=== PATIENT | male | born 1975 | race Caucasian/White ===

== ENCOUNTER 2025-02-01 05:01 | Inpatient (IN) ==
[2025-02-01] MEDS: SODIUM CHLORIDE 0.9% 1,000 ML IV ONE (05:35)
[2025-02-01] MEDS: ONDANSETRON INJ 2 MG/ML 2 ML VIAL IV STA (05:36)
[2025-02-01] MEDS: MoRPHine SULFATE 4 MG/ML 1 ML CARP\\VIAL IV PRN (05:36)
[2025-02-01] MEDS: PANTOprazole 40 MG/10 ML SYR IV ONE (05:37)
[2025-02-01 06:15] LABS: Appearance Urine Clear (Clear); Bacteria Urine Automated None Seen (None Seen); Bilirubin Urine 2+ (Negative); Blood Urine Negative (Negative); Cast Urine Automated 0-2 /lpf (0-2); Color Urine Orange; Epithelial Cell Urine Auto 0-2 /hpf (0-2); Glucose Urine UA Negative (Negative); Ketones Urine Trace (Negative); Leukocyte Esterase Urine 1+ (Negative); Mucus Urine Present (None Prsent); Nitrite Urine Positive (Negative); Protein Urine 1+ (Negative); RBC Urine Automated 0-2 /hpf (0-2); Specific Gravity Urine 1.024 (1.000-1.030); Urobilinogen Urine Negative (Negative); WBC Urine Automated 0-5 /hpf (0-5); pH Urine 6.5 (4.5-7.5)
[2025-02-01 06:17] LABS: BUN Creatinine Ratio 11.1 (10-20); Calcium 8.9 mg/dl (8.6-10.3); Creatinine Clr Calc Pharmacy 150.9 ml/min; Potassium 3.3 mmol/L (3.5-5.1)
[2025-02-01 06:18] LABS: INR 1.5 (0.9-1.1); Partial Thromboplastin Ratio 1.3; Partial Thromboplastin Time 34 Seconds (21-31); Prothrombin Time 15.8 Seconds (9.0-12.0)
[2025-02-01 06:21] LABS: Albumin Globulin Ratio 0.7 (0.9-2); Albumin Level 3.5 gm/dl (3.4-5.0); Bilirubin,Total 4.5 mg/dl (0.2-1.0); Globulin 4.7 gm/dl (2.5-4.0); Magnesium 1.6 mg/dl (1.7-2.4); Total Protein 8.2 gm/dl (6.0-8.3)
[2025-02-01 06:24] LABS: Troponin I High Sensitivity 11.4 pg/ml (0-20)
[2025-02-01 06:26] LABS: Hematocrit (blood only) 40.3 % (42.0-52.0); Mean Corpuscular Hemoglobin 32.3 pg (25.0-34.0); Mean Corpuscular Hgb Conc 34.7 g/dL (32.0-36.0); Mean Corpuscular Volume 93.1 fL (80.0-100.0); Mean Platelet Volume 10.2 fL (9.4-12.4); Platelet Count 90 K/uL (130-400); RDW Coefficient of Variation 14.5 % (11.5-14.5); RDW Standard Deviation 49.8 fL (36.4-46.3); Red Blood Count 4.33 M/uL (4.70-6.10); White Blood Count 8.84 K/ul (4.8-10.8)
[2025-02-01 06:27] LABS: Basophils # (auto) 0.08 K/uL (0.00-0.20); Basophils % (auto) 0.9 %; Eosinophils # (auto) 0.03 K/uL (0.00-0.50); Eosinophils % (auto) 0.3 %; Immature Granulocytes # (auto) 0.05 K/uL (0.01-0.20); Immature Granulocytes % (auto) 0.6 %; Lymphocytes # (auto) 0.98 K/uL (1.20-3.40); Lymphocytes % (auto) 11.1 %; Monocytes # (auto) 0.74 K/uL (0.11-0.59); Monocytes % (auto) 8.4 %; Neutrophils # (auto) 6.96 K/uL (1.40-6.50); Neutrophils % (auto) 78.7 %; Platelet Estimate Decreased (Normal); Toxic Vacuolation 1+
[2025-02-01] MEDS: OPTIRAY 320 100ml IV ONE (06:33)
[2025-02-01 06:48] LABS: Amphetamines+Metham, Urine Neg (Neg); Barbiturates, Urine Neg (Neg); Benzodiazepine, Urine Neg (Neg); Cocaine, Urine Neg (Neg); Fentanyl, Urine Neg (Neg); MDMA (Ecstacy), Urine Neg (Neg); Marijuana, Urine Neg (Neg); Methadone, Urine Neg (Neg); Opiate, Urine Neg (Neg); Phencyclidine, Urine Neg (Neg)
--- NOTE | 2025-02-01 06:54 | Emergency Department Note ---
History of Present Illness General Chief complaint: Abnormal Labs/Diagnostic Testing Stated complaint: ABD PAIN Time Seen by Provider: 02/01/25 05:13 History of Present Illness Maximum Pain Intensity: 5 This is a 47-year-old male presenting to the emergency department for evaluation of right-sided abdominal pain. Patient's symptoms have been worsening over the past few days. Patient is an alcoholic, drinking 3-5 drinks on a near daily basis. 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 The patient states that he has a bad gallbladder, and had imaging back in 2007 that showed gallstones. He was scheduled for outpatient HIDA and ultrasound, however he missed these appointments due to his employment. The patient has not had anything to drink today, and is nauseated with some vomiting. No recent travel history. No history of abdominal surgery. Home Medications Medication Instructions Recorded Confirmed Type No Known Home Medications 02/01/25 02/01/25 History Allergies Allergy/AdvReac Type Severity Reaction Status Date / Time cucumber Allergy Severe Body will Unverified 02/01/25 08:05 not digest Past Med/Surg History Problem List (Updated 02/01/25 @ 21:28 by Bandar Mireles PA-C) Cholelithiasis NOS (Acute) Acute pancreatitis (Acute) Alcohol use disorder (Acute) Edema of left lower leg Pharyngitis Fatty liver Right Achilles tendinitis History of Achilles tendon repair Health care maintenance Sleep disturbance Dyspnea on exertion Elevated LFTs (Acute) Hyperglycemia Achilles rupture, left Hyperlipidemia Medical History History of anesthesia reaction states he could hear/remember during follicular unit surgery Hair loss reason for finasteride Temporomandibular joint disorder intermittent swelling/teeth grinding (was using bite block--has not used in awhile) Exercise-induced asthma inhaler prn History of COVID-19 diagnosed 2020--mild symptoms, no symptoms now Surgical History History of cosmetic surgery back of head/top of head--follicular unit transplant History of colonoscopy History of wisdom tooth extraction Family History Grandmother (Maternal) Breast cancer Stroke Grandmother (Paternal) Diabetes Dementia Colorectal cancer Father Diabetes Myocardial infarction, Onset Age: 45 Other No family history of adverse response to anesthesia Denies family history of Ovarian cancer Prostate cancer Lung cancer Social History Smoking Status: Never smoker Second Hand Exposure: Yes (As a child); Do You Dip or Chew Tobacco: No; Tobacco Cessation Education Requested by Patient: No Hx Alcohol Use: Yes Alcohol type: beer and wine Alcohol Intake Frequency: 2-3 x/Week Hx Substance Use: No Preferred Language: Burmese Communication Ability: Effective Visual Impairment: Limited Hearing Ability: Normal Digital Marketing Associate Required: No Beliefs That Will Affect Care: None marital status: Current Living Situation: Spouse Current Living Situation Comment: Lives with and daugther current occupational status: employed 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 How many Children do You have: 1 Other Information That Helps Us Care for You: No Feels Safe at Home: Yes Safety Concerns: Feels Safe At This Time Childhood Exposure to Second-Hand Smoke: Yes (grandparents) Diet: regular caffeine: Yes Dental Care, Regularly: Yes Physical Activity Frequency: Daily Seatbelt Use: always Sunscreen Use: Yes (sometimes) Assistive Devices: Contacts, Glasses and Hospital Bed Review of Systems A total of 10 systems reviewed and were otherwise negative Physical Exam Vital Signs Vital Signs - 24 hr 02/01/25 05:08 02/01/25 05:51 02/01/25 07:02 Temperature 36.4 C L Temperature Source Temporal Artery Scan Pulse Rate 97 H 65 Pulse Rate [Finger] 82 Pulse Rate from SpO2 Sensor Pulse Rhythm [Finger] Regular Pulse Strength [Finger] Normal Respiratory Rate 18 18 Respiratory Effort / Characteristics Non-Labored Respiratory Depth Normal Respiratory Pattern Regular Blood Pressure 140/83 Blood Pressure [Left Arm] 138/77 Blood Pressure Mean 102 Blood Pressure Mean [Left Arm] 97 Blood Pressure Position [Left Arm] Lying Pulse Oximetry 98 98 Oxygen Delivery Method Room Air Room Air Sepsis Recent Fever Within 48 Hours No Sepsis New/Unexplained Change in Mental Status No Sepsis Action Taken by Nursing No Action Required 02/01/25 08:00 02/01/25 08:00 02/01/25 09:00 Temperature Temperature Source Pulse Rate 77 Pulse Rate [Finger] 80 Pulse Rate from SpO2 Sensor 77 81 Pulse Rhythm [Finger] Regular Pulse Strength [Finger] Normal Respiratory Rate 16 17 18 Respiratory Effort / Characteristics Non-Labored Respiratory Depth Normal Respiratory Pattern Regular Blood Pressure 145/78 H Blood Pressure [Left Arm] 136/76 Blood Pressure Mean 101 Blood Pressure Mean [Left Arm] 96 Blood Pressure Position [Left Arm] Lying Pulse Oximetry 96 92 95 Oxygen Delivery Method Room Air Sepsis Recent Fever Within 48 Hours Sepsis New/Unexplained Change in Mental Status Sepsis Action Taken by Nursing VITALS: Vitals are noted on the nurse's note and reviewed by myself. Vital signs stable. GENERAL: Well-developed, well-nourished, white male, who is pleasant appearing. HEAD: Normocephalic atraumatic. EARS: External ear normal. External auditory canals clear, tympanic membranes pearly giang without erythema or effusion bilaterally. EYES: Pupils equal round and reactive to light and accommodation. Light scleral icterus noted. NOSE: Patent, turbinates without inflammation or discharge. MOUTH: Mucous membranes moist. Tonsils are not enlarged. Pharynx without erythema, blood, or exudate. Uvula midline. Airway patent. NECK: Supple without nuchal rigidity. No lymphadenopathy. No thyromegaly. Cervical spine is nontender. HEART: Regular rate and rhythm without murmurs gallops or rubs. LUNGS: Clear to auscultation bilaterally without wheezes, rales or rhonchi. No retractions or accessory muscle use. ABDOMEN: Positive normal bowel sounds x 4. Soft, with positive epigastric and right upper quadrant tenderness. No lower tenderness. MUSCULOSKELETAL: No muscle atrophy, erythema, or edema noted. Full range of motion in all extremities. NEURO: Patient was alert and oriented to person place and time. CN II through XII grossly intact. Course Administered Medications Lactated Ringer's (Lr) 1,000 mls @ 200 mls/hr IV .Q5H BOBBY Stop: 02/04/25 14:46 Last Admin: 02/01/25 16:16 Dose: 200 mls/hr Documented By: HRB Discontinued Medications Sodium Chloride (Nss) 1,000 mls @ 999 mls/hr IV .Q1H1M ONE Stop: 02/01/25 06:21 Last Infusion: 02/01/25 06:49 Dose: Infused Documented By: Admin: 02/01/25 05:35 Dose: 999 mls/hr Documented By: ZANE Pantoprazole Sodium (Protonix) 40 mg in 10 mls @ 5 mls/min IV NOW ONE Stop: 02/01/25 05:23 Last Admin: 02/01/25 05:37 Dose: 5 mls/min Documented By: ZANE Folic Acid 1 mg/ Syringe 10 mls @ 5 mls/min IV NOW STA Stop: 02/01/25 06:40 Last Admin: 02/01/25 07:44 Dose: 5 mls/min Documented By: SCARLETT Lactated Ringer's (Lr) 1,000 mls @ 999 mls/hr IV .Q1H1M ONE Stop: 02/01/25 08:27 Last Infusion: 02/01/25 09:05 Dose: Infused Documented By: Infusion: 02/01/25 08:28 Dose: 999 mls/hr Documented By: Infusion: 02/01/25 08:23 Dose: 0 mls/hr Documented By: Admin: 02/01/25 07:59 Dose: 999 mls/hr Documented By: SCARLETT Magnesium Sulfate/Dextrose (Magnesium Sulfate / D5w) 1 gm in 100 mls @ 50 mls/hr IV Q2H BOBBY Stop: 02/01/25 11:44 Last Infusion: 02/01/25 12:41 Dose: Infused Documented By: Admin: 02/01/25 10:41 Dose: 50 mls/hr Documented By: Infusion: 02/01/25 10:40 Dose: Infused Documented By: Infusion: 02/01/25 09:58 Dose: 50 mls/hr Documented By: Infusion: 02/01/25 09:18 Dose: 0 mls/hr Documented By: Infusion: 02/01/25 08:28 Dose: 50 mls/hr Documented By: Infusion: 02/01/25 08:23 Dose: 0 mls/hr Documented By: Admin: 02/01/25 07:51 Dose: 50 mls/hr Documented By: SCARLETT Potassium Chloride (K Jose Antonio / Wtr) 10 meq in 100 mls @ 100 mls/hr IV Q1H BOBBY; Protocol Stop: 02/01/25 09:44 Last Infusion: 02/01/25 11:04 Dose: Infused Documented By: Admin: 02/01/25 10:00 Dose: 100 mls/hr Documented By: Infusion: 02/01/25 09:17 Dose: Infused Documented By: Infusion: 02/01/25 08:28 Dose: 100 mls/hr Documented By: Infusion: 02/01/25 08:22 Dose: 0 mls/hr Documented By: Admin: 02/01/25 07:48 Dose: 100 mls/hr Documented By: SCARLETT Ioversol (Optiray 320 100ml) 94 ml IV ONCE ONE Stop: 02/01/25 06:34 Last Admin: 02/01/25 06:33 Dose: 94 ml Documented By: DENNY Lorazepam (Lorazepam 2 Mg/1 Ml Vial) 2 mg IV NOW STA Stop: 02/01/25 06:47 Last Admin: 02/01/25 07:06 Dose: 2 mg Documented By: SCARLETT Morphine Sulfate (Morphine Sulfate 4 Mg/Ml 1 Ml Carp\Vial) 4 mg IV Q30M PRN PRN Reason: Pain Stop: 02/15/25 05:20 Last Admin: 02/01/25 05:36 Dose: 4 mg Documented By: ZANE Ondansetron HCl (Ondansetron Inj 2 Mg/Ml 2 Ml Vial) 4 mg IV NOW STA Stop: 02/01/25 05:22 Last Admin: 02/01/25 05:36 Dose: 4 mg Documented By: ZANE Medical Decision Making Differential Diagnosis Differential diagnosis: Etiologies such as biliary colic, cholecystitis, hepatitis, pancreatitis, cardiac disease, pancreatitis, gastritis, peptic ulcer disease, appendicitis, cystitis, diverticulitis, mesenteric ischemia, inflammatory bowel disease, ileus, bowel obstruction, testicular/adnexal torsion, aortic pathology, shingles, as well as others were considered Laboratory Data 02/01/25 05:35 02/01/25 05:35 Lab Results 02/01/25 Range/Units 05:35 WBC 8.84 (4.8-10.8) K/ul RBC 4.33 L (4.70-6.10) M/uL Hgb 14.0 (14.0-18.0) g/dl Hct 40.3 L (42.0-52.0) % MCV 93.1 (80.0-100.0) fL MCH 32.3 (25.0-34.0) pg MCHC 34.7 (32.0-36.0) g/dL RDW Std Deviation 49.8 H (36.4-46.3) fL RDW Coeff of Fredis 14.5 (11.5-14.5) % Plt Count 90 L (130-400) K/uL MPV 10.2 (9.4-12.4) fL Immature Gran % (Auto) 0.6 % Neut % (Auto) 78.7 % Lymph % (Auto) 11.1 % [place] % (Auto) 8.4 % Eos % (Auto) 0.3 % Baso % (Auto) 0.9 % Neut # (Auto) 6.96 H (1.40-6.50) K/uL Lymph # (Auto) 0.98 L (1.20-3.40) K/uL [place] # (Auto) 0.74 H (0.11-0.59) K/uL Eos # (Auto) 0.03 (0.00-0.50) K/uL Baso # (Auto) 0.08 (0.00-0.20) K/uL Immature Gran # (Auto) 0.05 (0.01-0.20) K/uL Toxic Vacuolation 1+ Platelet Estimate Decreased L (Normal) PT 15.8 H (9.0-12.0) Seconds INR 1.5 H (0.9-1.1) APTT 34 H (21-31) Seconds PTT Ratio 1.3 Sodium 133 L (136-145) mmol/L Potassium 3.3 L (3.5-5.1) mmol/L Chloride 98 (98-107) mmol/L Carbon Dioxide 24 (21-32) mmol/L Anion Gap 11 (3-11) BUN 8 (6-23) mg/dl Creatinine 0.72 (0.6-1.4) mg/dl Est Cr Clr Drug Dosing 150.9 ml/min eGFR 113.40 BUN/Creatinine Ratio 11.1 (10-20) Glucose 120 H (70-99(Fasting)) mg/dl Calcium 8.9 (8.6-10.3) mg/dl Magnesium 1.6 L (1.7-2.4) mg/dl Total Bilirubin 4.5 H (0.2-1.0) mg/dl Direct Bilirubin 1.5 H (0-0.2) mg/dl AST 119 H (13-39) U/L ALT 43 (7-52) U/L Alkaline Phosphatase 113 H (34-104) U/L Total Creatine Kinase 90 (30-223) U/L Troponin I High Sens 11.4 (0-20) pg/ml Total Protein 8.2 (6.0-8.3) gm/dl Albumin 3.5 (3.4-5.0) gm/dl Globulin 4.7 H (2.5-4.0) gm/dl Albumin/Globulin Ratio 0.7 L (0.9-2) Amylase 1517 H (25-115) U/L Lipase 6435 H (11-82) U/L Urine Color [place] Urine Appearance Clear (Clear) Urine pH 6.5 (4.5-7.5) Ur Specific [place] 1.024 (1.000-1.030) Urine Protein 1+ H (Negative) Urine Glucose (UA) Negative (Negative) Urine Ketones Trace H (Negative) Urine Blood Negative (Negative) Urine Nitrite Positive A (Negative) Urine Bilirubin 2+ H (Negative) Urine Urobilinogen Negative (Negative) Ur Leukocyte Esterase 1+ H (Negative) Urine WBC (Auto) 0-5 (0-5) /hpf Urine RBC (Auto) 0-2 (0-2) /hpf U Hyaline Cast (Auto) 0-2 (0-2) /lpf U Epithel Cells (Auto) 0-2 (0-2) /hpf Urine Bacteria (Auto) None Seen (None Seen) Urine Mucus Present A (None Prsent) Urine Comment Urine Opiates Screen Neg (Neg) Ur Methadone, Qual Neg (Neg) Urine Fentanyl Screen Neg (Neg) Urine Barbiturates Neg (Neg) Ur Phencyclidine (PCP) Neg (Neg) U Amphetamin/Meth Scrn Neg (Neg) MDMA (Ecstasy) Screen Neg (Neg) U Benzodiazepines Scrn Neg (Neg) Ur Cocaine Metabolite Neg (Neg) U Marijuana (THC) Screen Neg (Neg) Ethyl Alcohol mg/dL < 10.0 (<10.0) mg/dl Imaging Data Radiologist's Impression: Cholangiopancreatography MRI 02/01/25 07:26 MRCP CLINICAL HISTORY: elevated LFTs,gallstones,eval for choledocholithiasis. TECHNIQUE: Utilizing a 1.5 Dolly magnet and dedicated coil, multiplanar, multiecho imaging of the upper abdomen was performed utilizing heavily T2 weighted pulsing sequences without IV contrast. COMPARISON STUDY: Right upper quadrant ultrasound August 14, 2022. CT of the abdomen and pelvis February 01, 2025. FINDINGS: Hepatic steatosis is better depicted on CT performed earlier today. The liver is enlarged, measuring 21.4 cm in craniocaudal dimension. Several T2 hyperintense hepatic lesions measure up to 1.5 cm. There is also moderate splenomegaly. Small abdominal varices are better depicted on CT. The pancreas appears edematous. There is mild peripancreatic stranding and fluid. There is no pancreatic ductal dilatation. No biliary ductal dilatation is present. No common bile duct calculi are identified. There are numerous gallstones within the gallbladder. The gallbladder is mildly distended. There is no gallbladder wall thickening or pericholecystic fluid. The adrenal glands and kidneys are unremarkable. There is no hydronephrosis. No abdominal lymphadenopathy is present. IMPRESSION: 1. No biliary ductal dilatation. No common bile duct calculi identified. 2. Findings consistent with acute pancreatitis. 3. Cholelithiasis. No evidence for acute cholecystitis. 4. Hepatic steatosis and hepatomegaly. 5. Mild splenomegaly and varices formation suggestive of portal hypertension. 6. Several T2 hyperintense hepatic lesions which measure up to 1.5 cm. Although not overtly suspicious, these are indeterminate and a nonemergent liver protocol MRI is recommended. ACT 112: Negative or not required by law. Electronically signed by: Keven Schmidt M.D. 02/01/2025 10:22 AM MDM Narrative Physical exam and history were performed. Nursing notes, EMR, and Medication List were personally reviewed. No social concerns were identified as barriers to patients care. History was provided by the Patient. Patient appears to have abdominal pain bringing him to the ER. His vitals are stable, however by history he is an alcoholic. He has known gallbladder disease. IV access was established and labs were obtained. Patient was hydrated with normal saline and given IV morphine and IV Zofran for comfort. He was sent to CT scan for imaging of his abdomen and pelvis. Patient's blood work is as above and was reviewed. He does not have a significantly elevated white blood cell count or gross anemia. Patient's INR is 1.5. Glucose 120. AST is elevated at 119, ALT normal at 43, and alk phos elevated at 113. Total bilirubin is elevated at 4.5. Amylase and lipase are also elevated at 1517 and 6435. Urine collected and appears quite red with states color, however no blood is in the urine on UA. Urine is with bilirubin and nitrates. Culture pending. Drug abuse screen is negative. Alcohol is negative. Patient was tremulous in the ER and given given folic acid and Ativan. CT scan of the abdomen and pelvis was performed with IV contrast. CT scan was pending at the time of shift change. Case was discussed with my colleague, ALY Ellington, who will assume care pending CT imaging results. Please see her dictation for further patient course, plan, and disposition. The chart was completed utilizing [employer] Speech Voice Recognition Software. Grammatical errors, random word insertions, pronoun errors, and incomplete sentences are an occasional consequence of this system due to software limitations, ambient noise, and hardware issues. Any formal questions or concerns about the content, text, or information contained within the body of this dictation should be directly addressed to the provider for clarification. Impression & Plan Acute pancreatitis, Alcohol use disorder, Cholelithiasis NOS, Elevated LFTs Discharge Plan Visit Data Chief Complaint: Abnormal Labs/Diagnostic Testing Stated Complaint: ABD PAIN ED Provider: Kar Thompson ED Midlevel Provider: Katie Granados Discharge Problem: Acute pancreatitis, Alcohol use disorder, Cholelithiasis NOS, Elevated LFTs Patient Disposition: Admitted As Inpatient Condition: Fair Discharge Instructions Interventions: ED Discharge Assessment Last Done: 02/01/25 15:26
[2025-02-01] MEDS: LORazepam 2 MG/1 ML VIAL IV STA (07:06)
--- NOTE | 2025-02-01 07:17 | CT Scan Report ---
EXAM: CT abd pelvis IV con only CLINICAL HISTORY: right side abdominal pain TECHNIQUE: Contiguous axial images were obtained from the level of the diaphragm to the pubic symphysis with intravenous contrast. Coronal and sagittal reconstructions were likewise performed and indicated to increase the sensitivity for detecting clinically relevant pathology. If IV contrast material had not been administered, the likelihood of detecting abnormalities relevant to the patient's condition would have been substantially decreased. CT scan was performed according to ALARA (as low as reasonable achievable). COMPARISON: None. FINDINGS: The visualized lung bases are clear. The liver is normal in size and reduced attenuation. No focal liver lesions are seen. There is no intra or extrahepatic biliary ductal dilatation. Hepatic vasculature is patent. The gallbladder distended and shows multiple small calculi without cholecystitis. Pancreas appears normal in size, shape and shows subtle peripancreatic fat stranding The adrenal glands are unremarkable. Splenomegaly measures about 17 cm. The kidneys are normal in size and attenuation. There is no hydronephrosis or perinephric fat stranding. No renal calculi or renal masses are identified. The ureters are normal in caliber and no ureteral calculi are seen. The bladder is normal in contour. Pelvic viscera are unremarkable. No focal or diffuse bowel wall thickening or evidence of bowel obstruction is identified. No inflammed appendix is seen in right lower quadrant. Abdominal and pelvic vasculature is patent. No adenopathy or fluid collections are seen. No aggressive appearing osseous lesions are identified. Mucosal inflammation with adjacent fat stranding is noted involving second and third part of duodenum- suggestive of duodenitis IMPRESSION: 1. Hepatic steatosis. 2. Uncomplicated cholelithiasis. 3. Splenomegaly. 4. Pancreas appears normal in size, shape and shows subtle peripancreatic fat stranding- could be early pancreatitis. Serum amylase/lipase correlation suggested. 5. Mucosal inflammation with adjacent fat stranding is noted involving second and third part of duodenum- suggestive of duodenitis Electronically signed by Ashish Gaitan 02-01-2025 07:17 AM
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
[2025-02-01] MEDS: FOLIC ACID 1 MG in SYRINGE 9.8 ML IV STA (07:44)
[2025-02-01] MEDS: POTASSIUM CHLORIDE / WTR 10 MEQ/100 ML PLCT IV SCH (07:48)
[2025-02-01] MEDS: MAGNESIUM SULFATE / D5W 1 GM/100 ML BAG IV SCH (07:51)
[2025-02-01 07:57] LABS: Bilirubin Direct 1.5 mg/dl (0-0.2)
[2025-02-01] MEDS: LACTATED RINGER'S 1,000 ML IV ONE (07:59)
--- NOTE | 2025-02-01 08:42 | Emergency Department Note ---
ED Visit Note The patient was signed out to me at change of shift from Bandar Mireles PA-C pending CT imaging results. CT imaging was read as hepatic steatosis, unco mplicated cholelithiasis, splenomegaly, and subtle pancreatic fat stranding, likely early pancreatitis. Lipase is elevated. The patient will require admission, for IV fluids, pain control, and likely withdrawal from EtOH. [facility] I spoke with Dr. Khan regarding the patient's case. She agreed to evaluate and accept the patient for admission. Please refer to her documentation for further patient workup and care. .
--- NOTE | 2025-02-01 10:24 | Magnetic Resonance Report ---
MRCP CLINICAL HISTORY: elevated LFTs,gallstones,eval for choledocholithiasis. TECHNIQUE: Utilizing a 1.5 Dolly magnet and dedicated coil, multiplanar, multiecho imaging of the [facility] abdomen was performed utilizing heavily T2 weighted pulsing sequences without IV contrast. COMPARISON STUDY: Right upper quadrant ultrasound August 14, 2022. CT of the abdomen and pelvis Ju 2024. FINDINGS: Hepatic steatosis is better depicted on CT performed earlier today. The liver is enlarged, measuring 21.4 cm in craniocaudal dimension. Several T2 hyperintense hepatic lesions measure up to 1. 5 cm. There is also moderate splenomegaly. Small abdominal varices are better depicted on CT. The paredes creas appears edematous. There is mild peripancreatic stranding and fluid. There is no pancreatic zhang doug dilatation. No biliary ductal dilatation is present. No common bile duct calculi are identified. There are numerous gallstones within the gallbladder. The gallbladder is mildly distended. There is n o gallbladder wall thickening or pericholecystic fluid. The adrenal glands and kidneys are unremarkab le. There is no hydronephrosis. No abdominal lymphadenopathy is present. IMPRESSION: 1. No biliary ductal dilatation. No common bile duct calculi identified. 2. Findings consistent with acute pancreatitis. 3. Cholelithiasis. No evidence for acute cholecystitis. 4. Hepatic steatosis and hepatomegaly. 5. Mild splenomegaly and varices formation suggestive of portal hypertension. 6. Several T2 hyperintense hepatic lesions which measure up to 1.5 cm. Although not overtly suspiciou s, these are indeterminate and a nonemergent liver protocol MRI is recommended. ACT 112: Negative or not required by law. Electronically signed by: Keven Schmidt M.D. 02/01/2025 10:22 AM
--- NOTE | 2025-02-01 14:45 | Surgery Consultation ---
Date of Consultation February 01, 2025 Assessment & Plan (1) Acute pancreatitis: Patient with c/o abdominal pain that started yesterday afternoon. Patient reports pain started with a sudden onset stabbing in his back and RUQ. He had associated nausea without vomiting and approximately 10 episodes of diarrhea that he describes as oily. Patient was found to have pancreatitis, cholelithiasis, duodenitis, and splenomegaly on CT scan and MRCP without concerns of biliary dilation. The MRCP is showing Several T2 hyperintense hepatic lesions which measure up to 1.5 cm. Although not overtly suspicious, these are indeterminate and a nonemergent liver protocol MRI is recommended. On exam the patient is in NAD, VSS, afebrile. Labs reflect acute pancreatitis with elevated amylase, lipase and LFTs. Abdomen is distended, soft , TTP RUQ, RLQ. Discussed with patient treatment options for cholelithiasis. He would like to have surgical intervention in the form of a laparoscopic cholecystectomy, however this would not take place until his pancreatitis has resolved. Recommending GI consult for possible ERCP. Keep NPO, IV Fluids for hydration, IV antiemetic, IV analgesic, trending LFT, amylase/lipase. Will discuss case with jump iron machine presser surgeon Dr Fernandes and further recommendations will be forth coming. (2) Cholelithiasis NOS: Supervising Physician Co-Signing Physician Notes This case has been discussed with the surgical PA. There will be no acute surgical intervention with acute pancreatitis. Recommend supportive care for pancreatitis. GI evaluation for elevated transaminases. Potential cholecystectomy when pancreatitis resolves. Of note, questionable hepatic lesions are identified recommending a liver protocol MRI. History of Present Illness Reason for Consultation: Gallstone pancreatitis Requesting Physician: Dr Cueva Attending Physician: Eneida Cueva MD History of Present Illness Patient is a pleasant 49 yo male with PMH ETOH use disorder, fatty liver, HLD, that presented to the [facility] ER today with c/o abdominal pain that started yesterday afternoon. Patient reports pain started with a sudden onset stabbing in his back and RUQ. He had associated nausea without vomiting and approximately 10 episodes of diarrhea that he describes as oily. He states he has known he had cholelithiasis since 2008 when he was admitted to the hospital for an "intestinal gas intrusion" for which he was treated with antibiotics and sent home. He has had some similar abdominal pain in the past since 2008 with his most recent episode being around [place] of 2023 after eating some fatty greasy food. He does report a history of alcohol use having it about 4times a week and having 5-7 drinks a day. He denies alcohol use yesterday prior or after the onset of pain. He has never had abdominal surgery and denies blood thinners. Patient was found to have pancreatitis, cholelithiasis, duodenitis, and splenomegaly. Allergies Allergy/AdvReac Type Severity Reaction Status Date / Time cucumber Allergy Severe Body will Unverified 02/01/25 08:05 not digest Home Medications Medication Instructions Recorded Confirmed Type No Known Home Medications 02/01/25 02/01/25 History Patient History Medical History History of anesthesia reaction states he could hear/remember during follicular unit surgery Hair loss reason for finasteride Temporomandibular joint disorder intermittent swelling/teeth grinding (was using bite block--has not used in awhile) Exercise-induced asthma inhaler prn History of COVID-19 diagnosed 2020--mild symptoms, no symptoms now Surgical History History of cosmetic surgery back of head/top of head--follicular unit transplant History of colonoscopy History of wisdom tooth extraction Family History Grandmother (Maternal) Breast cancer Stroke Grandmother (Paternal) Diabetes Dementia Colorectal cancer Father Diabetes Myocardial infarction, Onset Age: 45 Other No family history of adverse response to anesthesia Denies family history of Ovarian cancer Prostate cancer Lung cancer Social History Smoking Status: Never smoker Second Hand Exposure: Yes (As a child); Do You Dip or Chew Tobacco: No; Tobacco Cessation Education Requested by Patient: No Hx Alcohol Use: Yes Alcohol type: beer and wine Alcohol Intake Frequency: 2-3 x/Week Hx Substance Use: No Preferred Language: Urdu Communication Ability: Effective Visual Impairment: Limited Hearing Ability: Normal [employer] In[employer] Required: No Beliefs That Will Affect Care: None marital status: Current Living Situation: Spouse Current Living Situation Comment: Lives with and daugther current occupational status: employed 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 How many Children do You have: 1 Other Information That Helps Us Care for You: No Feels Safe at Home: Yes Safety Concerns: Feels Safe At This Time Childhood Exposure to Second-Hand Smoke: Yes (grandparents) Diet: regular caffeine: Yes Dental Care, Regularly: Yes Physical Activity Frequency: Daily Seatbelt Use: always Sunscreen Use: Yes (sometimes) Assistive Devices: Contacts, Glasses and Hospital Bed Review of Systems Constitutional: no fever and no chills Respiratory: no dyspnea Cardiovascular: no chest pain Gastrointestinal: + abdominal pain, + bloating, + nausea a nd + diarrhea/loose stools; no vomiting Integumentary: no wounds Physical Exam Constitutional: cooperative and comfortable; no acute distress Respiratory: normal respiratory effort and able to speak in complete sentences; no respiratory distress Gastrointestinal (Abdomen): Inspection/Auscultation: + abdomen distended Percussion/Palpation: + abdomen tender and abdomen soft Psychiatric: Orientation: alert and oriented x 3 Results & Data Vital Signs (Past 12 Hours) Vital Signs Temp Pulse Pulse Resp BP BP Pulse Ox 02/01/25 13:00 76 135/74 94 02/01/25 12:00 74 18 131/77 94 02/01/25 11:00 75 19 132/70 95 02/01/25 10:21 74 02/01/25 09:58 80 18 140/78 94 02/01/25 09:00 18 145/78 H 95 02/01/25 08:00 77 17 92 02/01/25 08:00 80 16 136/76 96 02/01/25 07:02 82 18 138/77 98 02/01/25 05:51 65 02/01/25 05:08 97.5 F L 97 H 18 140/83 98 O2 Del Method 02/01/25 13:00 02/01/25 12:00 02/01/25 11:00 02/01/25 10:21 02/01/25 09:58 Room Air 02/01/25 09:00 02/01/25 08:00 02/01/25 08:00 Room Air 02/01/25 07:02 Room Air 02/01/25 05:51 02/01/25 05:08 Room Air Diagnostic Findings [facility] [place] [phone] Magnetic Resonance Report Patient: DEANDRE GRANT Admit Date: 02/01/25 MR#: [id number] Address1: [address] [place] [address] Acct ID:[id number] Address2: Date: 1975 [facility] Zip: [place] [id number] Age: 49 Location: ED Sex: M Room/Bed: Att Phy: Eneida Cueva MD Diagnosis: ABD PAIN Liz Phy: Kar Tripp MD Service Date: 02/01/25 [facility] Phy: Interpreting Phy: Keven Schmidt MDAdmit Phy: Ordering Phy: Eneida Cueva MD cc: ~ MRCP CLINICAL HISTORY: elevated LFTs,gallstones,eval for choledocholithiasis. TECHNIQUE: Utilizing a 1.5 Dolly magnet and dedicated coil, multiplanar, multiecho imaging of the upper abdomen was performed utilizing heavily T2 weighted pulsing sequences without IV contrast. COMPARISON STUDY: Right upper quadrant ultrasound August 14, 2022. CT of the abdomen and pelvis February 01, 2025. FINDINGS: Hepatic steatosis is better depicted on CT performed earlier today. The liver is enlarged, measuring 21.4 cm in craniocaudal dimension. Several T2 hyperintense hepatic lesions measure up to 1.5 cm. There is also moderate splenomegaly. Small abdominal varices are better depicted on CT. The pancreas appears edematous. There is mild peripancreatic stranding and fluid. There is no pancreatic ductal dilatation. No biliary ductal dilatation is present. No common bile duct calculi are identified. There are numerous gallstones within the gallbladder. The gallbladder is mildly distended. There is no gallbladder wall thickening or pericholecystic fluid. The adrenal glands and kidneys are unremarkable. There is no hydronephrosis. No abdominal lymphadenopathy is presen t. IMPRESSION: 1. No biliary ductal dilatation. No common bile duct calculi identified. 2. Findings consistent with acute pancreatitis. 3. Cholelithiasis. No evidence for acute cholecystitis. 4. Hepatic steatosis and hepatomegaly. 5. Mild splenomegaly and varices formation suggestive of portal hypertension. 6. Several T2 hyperintense hepatic lesions which measure up to 1.5 cm. Although not overtly suspicious, these are indeterminate and a nonemergent liver protocol MRI is recommended. ACT 112: Negative or not required by law. Electronically signed by: Keven Schmidt M.D. 02/01/2025 10:22 AM Dictated: 02/01/25 1013 Transcribed: 02/01/25 1013 [phone] Scan Report Patient: DEANDRE GRANT Admit Date: 02/01/25 MR#: [id number] Address1: [address] [place] [address] Acct ID:[id number] Address2: Date: 1975 [facility] Zip: [place] [id number] Age: 49 Location: ED Sex: M Room/Bed: Att Phy: Diagnosis: ABD PAIN Liz Phy: Kar Tripp MD Service Date: 02/01/25 [facility] Phy: Interpreting Phy: Ashish Carlton MDAdmit Phy: Ordering Phy: Bandar Mireles PA-C cc: ~ EXAM: CT abd pelvis IV con only CLINICAL HISTORY: right side abdominal pain TECHNIQUE: Contiguous axial images were obtained from the level of the diaphragm to the pubic symphysis with intravenous contrast. Coronal and sagittal reconstructions were likewise performed and indicated to increase the sensitivity for detecting clinically relevant pathology. If IV contrast material had not been administered, the likelihood of detecting abnormalities relevant to the patient's condition would have been substantially decreased. CT scan was performed according to ALARA (as low as reasonable achievable). COMPARISON: None. FINDINGS: The visualized lung bases are clear. The liver is normal in size and reduced attenuation. No focal liver lesions are seen. There is no intra or extrahepatic biliary ductal dilatation. Hepatic vasculature is patent. The gallbladder distended and shows multiple small calculi without cholecystitis. Pancreas appears normal in size, shape and shows subtle peripancreatic fat stranding The adrenal glands are unremarkable. Splenomegaly measures about 17 cm. The kidneys are normal in size and attenuation. There is no hydronephrosis or perinephric fat stranding. No renal calculi or renal masses are identified. The ureters are normal in caliber and no ureteral calculi are seen. The bladder is normal in contour. Pelvic viscera are unremarkable. No focal or diffuse bowel wall thickening or evidence of bowel obstruction is identified. No inflammed appendix is seen in right lower quadrant. Abdominal and pelvic vasculature is patent. No adenopathy or fluid collections are seen. No aggressive appearing osseous lesions are identified. Mucosal inflammation with adjacent fat stranding is noted involving second and third part of duodenum- suggestive of duodenitis IMPRESSION: 1. Hepatic steatosis. 2. Uncomplicated cholelithiasis. 3. Splenomegaly. 4. Pancreas appears normal in size, shape and shows subtle peripancreatic fat stranding- could be early pancreatitis. Serum amylase/lipase correlation suggested. 5. Mucosal inflammation with adjacent fat stranding is noted involving second and third part of duodenum- suggestive of duodenitis Electronically signed by Ashish Carlton 02-01-2025 07:17 AM Dictated: 02/01/25625 Transcribed: Results CBC w Diff Results: RBC 4.33 M/uL (4.70-6.10) L 02/01/25 WBC 8.84 K/ul (4.8-10.8) 02/01/25 Hgb 14.0 g/dl (14.0-18.0) 02/01/25 Hct 40.3 % (42.0-52.0) L 02/01/25 MCV 93.1 fL (80.0-100.0) 02/01/25 MCH 32.3 pg (25.0-34.0) 02/01/25 MCHC 34.7 g/dL (32.0-36.0) 02/01/25 RDW Standard Deviation 49.8 fL (36.4-46.3) H 02/01/25 RDW Coefficient of Variation 14.5 % (11.5-14.5) 02/01/25 Plt Count 90 K/uL (130-400) L 02/01/25 MPV 10.2 fL (9.4-12.4) 02/01/25 Neutrophils (%) (Auto) 78.7 % 02/01/25 Lymphocytes (%) (Auto) 11.1 % 02/01/25 Monocytes # (Auto) 0.74 K/uL (0.11-0.59) H 02/01/25 Eosinophils # (Auto) 0.03 K/uL (0.00-0.50) 02/01/25 Immature Granulocyte % (Auto) 0.6 % 02/01/25 Neutrophils # (Auto) 6.96 K/uL (1.40-6.50) H 02/01/25 Lymphocytes # (Auto) 0.98 K/uL (1.20-3.40) L 02/01/25 Monocytes # (Auto) 0.74 K/uL (0.11-0.59) H 02/01/25 Eosinophils # (Auto) 0.03 K/uL (0.00-0.50) 02/01/25 Basophils # (Auto) 0.08 K/uL (0.00-0.20) 02/01/25 Immature Granulocyte # (Auto) 0.05 K/uL (0.01-0.20) 5 Toxic Vacuolation 1+ 02/01/25 Results CMP Results: Sodium 133 mmol/L (136-145) L 02/01/25 Potassium 3.3 mmol/L (3.5-5.1) L 02/01/25 Chloride 98 mmol/L (98-107) 02/01/25 Carbon Dioxide 24 mmol/L (21-32) 02/01/25 Anion Gap 11 (3-11) 02/01/25 BUN 8 mg/dl (6-23) 02/01/25 Creatinine 0.72 mg/dl (0.6-1.4) 02/01/25 eGFR 113.40 02/01/25 Est GFR ( Amer) 103.6 ml/min 04/08/23 Est GFR (Non-Af Amer) 89.4 ml/min 04/08/23 BUN/Creatinine Ratio 11.1 (10-20) 02/01/25 Glucose 120 mg/dl (70-99(Fasting)) H 02/01/25 Calcium 8.9 mg/dl (8.6-10.3) 02/01/25 Total Bilirubin 4.5 mg/dl (0.2-1.0) H 02/01/25 Direct Bilirubin 1.5 mg/dl (0-0.2) H 02/01/25 AST 119 U/L (13-39) H 02/01/25 ALT 43 U/L (7-52) 02/01/25 Alkaline Phosphatase 113 U/L (34-104) H 02/01/25 Total Protein 8.2 gm/dl (6.0-8.3) 02/01/25 Albumin 3.5 gm/dl (3.4-5.0) 02/01/25 Globulin 4.7 gm/dl (2.5-4.0) H 02/01/25 Albumin/Globulin Ratio 0.7 (0.9-2) L 02/01/25 Results Urinalysis: Urine Color [place] 02/01/25 Urine Appearance Clear (Clear) 02/01/25 Urine pH 6.5 (4.5-7.5) 02/01/25 Ur Specific [place] 1.024 (1.000-1.030) 02/01/25 Urine Protein 1+ (Negative) H 02/01/25 Urine Glucose (UA) Negative (Negative) 02/01/25 Urine Ketones Trace (Negative) H 02/01/25 Urine Blood Negative (Negative) 02/01/25 Urine Nitrite Positive (Negative) A 02/01/25 Urine Bilirubin 2+ (Negative) H 02/01/25 Urine Urobilinogen Negative (Negative) 02/01/25 Ur Leukocyte Esterase 1+ (Negative) H 02/01/25 Urine WBC (Auto) 0-5 /hpf (0-5) 02/01/25 Urine RBC (Auto) 0-2 /hpf (0-2) 02/01/25 Urine Hyaline Casts (Auto) 0-2 /lpf (0-2) 02/01/25 Urine Epithelial Cells (Auto) 0-2 /hpf (0-2) 02/01/25 Urine Bacteria (Auto) None Seen (None Seen) 02/01/25 Urine Culture: Micro Urine Specimen 02/01/25 PG Care Time/CCT Total # of Minutes Spent Total Time Spent with Patient: Total time spent is greater than 50% in coordination of care (as documented) at patient's floor/unit and/or counseling patient: Coding Level of Care Code 73384 IN/OBS CONSULT LVL 3,45M Diagnoses Acute pancreatitis K85.90 Cholelithiasis NOS K80.20
[2025-02-01] MEDS ORDERED: LORazepam 2 MG/1 ML VIAL IV PRN (14:47)
[2025-02-01] MEDS ORDERED: MoRPHine SULFATE 4 MG/ML 1 ML CARP\\VIAL IV PRN (14:47)
[2025-02-01] MEDS ORDERED: ACETAMINOPHEN 1,000 MG/100 ML VIAL IV PRN (14:47)
[2025-02-01] MEDS ORDERED: ONDANSETRON INJ 2 MG/ML 2 ML VIAL IV PRN (14:47)
[2025-02-01] MEDS ORDERED: ACETAMINOPHEN 325 MG TAB PO PRN (14:47)
[2025-02-01] MEDS: LACTATED RINGER'S 1,000 ML IV SCH (16:16)
--- NOTE | 2025-02-01 16:47 | Gastrointestinal Consultation ---
Date of Consultation February 01, 2025 Assessment & Plan (1) Acute pancreatitis: Gallstone Pancreatitis - Clinical history and imaging are consistent with gallstone pancreatitis. - Patient seen with Dr. Urrutia, Gastroenterology - Recommend ongoing NPO orders. - Continue with pain management per primary team. Supervising Physician Co-Signing Physician Notes I saw and examined this patient with our nurse practitioner and agree with her assessment and plan. Clinical picture consistent with gallstone pancreatitis. MRCP does not show any common duct stones. Likely spontaneous passage of gallstone. Dynamically stable. No signs of infection. Continue medical management. Ultimate cholecystectomy. May need further evaluation of liver imaging which I suspect is just related to fatty liver as well as evaluation of splenomegaly and possible varices which may be a consequence of the pancreatitis. This can be evaluated after resolution of pancreatitis. History of Present Illness Reason for Consultation: Gallstone pancreatitis Requesting Physician: Eneida Cueva Attending Physician: Eneida Cueva MD History of Present Illness 49yowm with h/o NAFLD, YEN, Achilles rupture, DL and alcohol use disorder is seen in [facility] ER for concerns of gallstone pancreatitis. Patient reports that he developed right upper quadrant pain that was intermittent several months ago. This would typically be right sided radiating to the back that is constant for about 30 minutes then resolve. However, over the last weekend it became more frequent. He reports that he was told he had a 'bad gallbladder'. With symptoms progressing he came to the ER. Labs 02/01/25 - Lipase 6435, Amylase 1517, T-Bili 4.5, AST 119, ALT 43, Alk Phos 113. CBC was reviewed. Hgb 14.0. Total WBC WNL. but mild elevation of Neutrophi ls at 6.96k/ul. Platelets 90 k/ul. CT abd/pelvis 02/01/25 IMPRESSION: 1. Hepatic steatosis. 2. Uncomplicated cholelithiasis. 3. Splenomegaly. 4. Pancreas appears normal in size, shape and shows subtle peripancreatic fat stranding- could be early pancreatitis. Serum amylase/lipase correlation suggested. 5. Mucosal inflammation with adjacent fat stranding is noted involving second and third part of duodenum- suggestive of duodenitis MRCP 02/01/25 IMPRESSION: 1. No biliary ductal dilatation. No common bile duct calculi identified. 2. Findings consistent with acute pancreatitis 3. Cholelithiasis. No evidence for acute cholecystitis. 4. Hepatic steatosis and hepatomegaly. 5. Mild splenomegaly and varices formation suggestive of portal hypertension. 6. Several T2 hyperintense hepatic lesions which measure up to 1.5 cm. Although not overtly suspicious, these are indeterminate and a nonemergent liver protocol MRI is recommended. Patient was admitted with suspect gallstone pancreatitis. Patient placed on NPO with pain management. No reports of fevers, N/V/D, melena, hematochezia. Allergies Allergy/AdvReac Type Severity Reaction Status Date / Time cucumber Allergy Severe Body will Unverified 02/01/25 08:05 not digest Home Medications Medication Instructions Recorded Confirmed Type No Known Home Medications 02/01/25 02/01/25 History Patient History Medical History History of anesthesia reaction states he could hear/remember during follicular unit surgery Hair loss reason for finasteride Temporomandibular joint disorder intermittent swelling/teeth grinding (was using bite block--has not used in awhile) Exercise-induced asthma inhaler prn History of COVID-19 diagnosed 2020--mild symptoms, no symptoms now Surgical History History of cosmetic surgery back of head/top of head--follicular unit transplant History of colonoscopy History of wisdom tooth extraction Family History Grandmother (Maternal) Breast cancer Stroke Grandmother (Paternal) Diabetes Dementia Colorectal cancer Father Diabetes Myocardial infarction, Onset Age: 45 Other No family history of adverse response to anesthesia Denies family history of Ovarian cancer Prostate cancer Lung cancer Social History Smoking Status: Never smoker Second Hand Exposure: Yes (As a child); Do You Dip or Chew Tobacco: No; Tobacco Cessation Education Requested by Patient: No Hx Alcohol Use: Yes Alcohol type: beer and wine Alcohol Intake Frequency: 2-3 x/Week Hx Substance Use: No Preferred Language: Citizen Of [place] Communication Ability: Effective Visual Impairment: Limited Hearing Ability: Normal Hand Fur Cleaner Required: No Beliefs That Will Affect Care: None marital status: Current Living Situation: Spouse Current Living Situation Comment: Lives with and daugther current occupational status: employed 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 Eyes: conjunctivae pink, anicteric sclerae. Respiratory: Breathing is even, non-labored. Lungs eason are clear to auscultation without wheezes, rhonchi or rales. Cardiovascular: Regular Rate and Rhythm, no murmurs, rubs or gallops appreciated. Gastrointestinal (Abdomen): Normoactive bowel sounds x4, soft, non-distended, non-tender. Musculoskeletal: Lying comfortably in bed. No cyanosis or clubbing is appreciated. No peripheral edema. Results & Data Vital Signs (Past 12 Hours) Vital Signs Temp Pulse Pulse Resp BP BP Pulse Ox 02/01/25 15:57 98.2 F 74 18 158/82 H 98 02/01/25 15:03 77 02/01/25 15:00 78 22 149/90 H 97 02/01/25 13:00 76 135/74 94 02/01/25 12:00 74 18 131/77 94 02/01/25 11:00 75 19 132/70 95 02/01/25 10:21 74 02/01/25 09:58 80 18 140/78 94 02/01/25 09:00 18 145/78 H 95 02/01/25 08:00 77 17 92 02/01/25 08:00 80 16 136/76 96 02/01/25 07:02 82 18 138/77 98 02/01/25 05:51 65 02/01/25 05:08 97.5 F L 97 H 18 140/83 98 O2 Del Method 02/01/25 15:57 Room Air 02/01/25 15:03 02/01/25 15:00 Room Air 02/01/25 13:00 02/01/25 12:00 02/01/25 11:00 02/01/25 10:21 02/01/25 09:58 Room Air 02/01/25 09:00 02/01/25 08:00 02/01/25 08:00 Room Air 02/01/25 07:02 Room Air 02/01/25 05:51 02/01/25 05:08 Room Air Laboratory Results Laboratory Results - last 48 hr 02/01/25 05:35 WBC 8.84 RBC 4.33 L Hgb 14.0 Hct 40.3 L MCV 93.1 MCH 32.3 MCHC 34.7 RDW Std Deviation 49.8 H RDW Coeff of Fredis 14.5 Plt Count 90 L MPV 10.2 Immature Gran % (Auto) 0.6 Neut % (Auto) 78.7 Lymph % (Auto) 11.1 Martin % (Auto) 8.4 Eos % (Auto) 0.3 Baso % (Auto) 0.9 Neut # (Auto) 6.96 H Lymph # (Auto) 0.98 L Martin # (Auto) 0.74 H Eos # (Auto) 0.03 Baso # (Auto) 0.08 Immature Gran # (Auto) 0.05 Toxic Vacuolation 1+ Platelet Estimate Decreased L PT 15.8 H INR 1.5 H APTT 34 H PTT Ratio 1.3 Sodium 133 L Potassium 3.3 L Chloride 98 Carbon Dioxide 24 Anion Gap 11 BUN 8 Creatinine 0.72 Est Cr Clr Drug Dosing 150.9 eGFR 113.40 BUN/Creatinine Ratio 11.1 Glucose 120 H Calcium 8.9 Magnesium 1.6 L Total Bilirubin 4.5 H Direct Bilirubin 1.5 H AST 119 H ALT 43 Alkaline Phosphatase 113 H Total Creatine Kinase 90 Troponin I High Sens 11.4 Total Protein 8.2 Albumin 3.5 Globulin 4.7 H Albumin/Globulin Ratio 0.7 L Amylase 1517 H Lipase 6435 H Urine Color [place] Urine Appearance Clear Urine pH 6.5 Ur Specific [place] 1.024 Urine Protein 1+ H Urine Glucose (UA) Negative Urine Ketones Trace H Urine Blood Negative Urine Nitrite Positive A Urine Bilirubin 2+ H Urine Urobilinogen Negative Ur Leukocyte Esterase 1+ H Urine WBC (Auto) 0-5 Urine RBC (Auto) 0-2 U Hyaline Cast (Auto) 0-2 U Epithel Cells (Auto) 0-2 Urine Bacteria (Auto) None Seen Urine Mucus Present A Urine Comment Urine Opiates Screen Neg Ur Methadone, Qual Neg Urine Fentanyl Screen Neg Urine Barbiturates Neg Ur Phencyclidine (PCP) Neg U Amphetamin/Meth Scrn Neg MDMA (Ecstasy) Screen Neg U Benzodiazepines Scrn Neg Ur Cocaine Metabolite Neg U Marijuana (THC) Screen Neg Ethyl Alcohol mg/dL < 10.0 Diagnostic Findings Abdomen/Pelvis CT 02/01/25 05:21 EXAM: CT abd pelvis IV con only CLINICAL HISTORY: right side abdominal pain TECHNIQUE: Contiguous axial images were obtained from the level of the diaphragm to the pubic symphysis with intravenous contrast. Coronal and sagittal reconstructions were likewise performed and indicated to increase the sensitivity for detecting clinically relevant pathology. If IV contrast material had not been administered, the likelihood of detecting abnormalities relevant to the patient's condition would have been substantially decreased. CT scan was performed according to ALARA (as low as reasonable achievable). COMPARISON: None. FINDINGS: The visualized lung bases are clear. The liver is normal in size and reduced attenuation. No focal liver lesions are seen. There is no intra or extrahepatic biliary ductal dilatation. Hepatic vasculature is patent. The gallbladder distended and shows multiple small calculi without cholecystitis. Pancreas appears normal in size, shape and shows subtle peripancreatic fat stranding The adrenal glands are unremarkable. Splenomegaly measures about 17 cm. The kidneys are normal in size and attenuation. There is no hydronephrosis or perinephric fat stranding. No renal calculi or renal masses are identified. The ureters are normal in caliber and no ureteral calculi are seen. The bladder is normal in contour. Pelvic viscera are unremarkable. No focal or diffuse bowel wall thickening or evidence of bowel obstruction is identified. No inflammed appendix is seen in right lower quadrant. Abdominal and pelvic vasculature is patent. No adenopathy or fluid collections are seen. No aggressive appearing osseous lesions are identified. Mucosal inflammation with adjacent fat stranding is noted involving second and third part of duodenum- suggestive of duodenitis IMPRESSION: 1. Hepatic steatosis. 2. Uncomplicated cholelithiasis. 3. Splenomegaly. 4. Pancreas appears normal in size, shape and shows subtle peripancreatic fat stranding- could be early pancreatitis. Serum amylase/lipase correlation suggested. 5. Mucosal inflammation with adjacent fat stranding is noted involving second and third part of duodenum- suggestive of duodenitis Electronically signed by Ashish Gaitan 02-01-2025 07:17 AM Cholangiopancreatography MRI 02/01/25 07:26 MRCP CLINICAL HISTORY: elevated LFTs,gallstones,eval for choledocholithiasis. TECHNIQUE: Utilizing a 1.5 Dolly magnet and dedicated coil, multiplanar, multiecho imaging of the upper abdomen was performed utilizing heavily T2 weighted pulsing sequences without IV contrast. COMPARISON STUDY: Right upper quadrant ultrasound August 14, 2022. CT of the abdomen and pelvis February 01, 2025. FINDINGS: Hepatic steatosis is better depicted on CT performed earlier today. The liver is enlarged, measuring 21.4 cm in craniocaudal dimension. Several T2 hyperintense hepatic lesions measure up to 1.5 cm. There is also moderate splenomegaly. Small abdominal varices are better depicted on CT. The pancreas appears edematous. There is mild peripancreatic stranding and fluid. There is no pancreatic ductal dilatation. No biliary ductal dilatation is present. No common bile duct calculi are identified. There are numerous gallstones within the gallbladder. The gallbladder is mildly distended. There is no gallbladder wall thickening or pericholecystic fluid. The adrenal glands and kidneys are unremarkable. There is no hydronephrosis. No abdominal lymphadenopathy is present. IMPRESSION: 1. No biliary ductal dilatation. No common bile duct calculi identified. 2. Findings consistent with acute pancreatitis. 3. Cholelithiasis. No evidence for acute cholecystitis. 4. Hepatic steatosis and hepatomegaly. 5. Mild splenomegaly and varices formation suggestive of portal hypertension. 6. Several T2 hyperintense hepatic lesions which measure up to 1.5 cm. Although not overtly suspicious, these are indeterminate and a nonemergent liver protocol MRI is recommended. ACT 112: Negative or not required by law. Electronically signed by: Keven Schmidt M.D. 02/01/2025 10:22 AM PG Care Time/CCT Total # of Minutes Spent Total Time Spent with Patient: Total time spent is greater than 50% in coordination of care (as documented) at patient's floor/unit and/or counseling patient: Coding Level of Care Code 98836 IN/OBS CONSULT LVL 3,45M Diagnoses Acute pancreatitis K85.90
[2025-02-01] MEDS: PANTOprazole 40 MG/10 ML SYR IV SCH (22:14)
[2025-02-02 06:22] LABS: Basophils # (auto) 0.06 K/uL (0.00-0.20); Basophils % (auto) 1.1 %; Eosinophils # (auto) 0.07 K/uL (0.00-0.50); Eosinophils % (auto) 1.3 %; Hematocrit (blood only) 36.1 % (42.0-52.0); Hemoglobin 12.4 g/dl (14.0-18.0); Immature Granulocytes # (auto) 0.02 K/uL (0.01-0.20); Immature Granulocytes % (auto) 0.4 %; Lymphocytes # (auto) 1.39 K/uL (1.20-3.40); Lymphocytes % (auto) 26.4 %; Mean Corpuscular Hemoglobin 32.8 pg (25.0-34.0); Mean Corpuscular Hgb Conc 34.3 g/dL (32.0-36.0); Mean Corpuscular Volume 95.5 fL (80.0-100.0); Mean Platelet Volume 10.6 fL (9.4-12.4); Monocytes % (auto) 7.6 %; Neutrophils # (auto) 3.32 K/uL (1.40-6.50); Neutrophils % (auto) 63.2 %; Platelet Count 65 K/uL (130-400); RDW Coefficient of Variation 14.6 % (11.5-14.5); RDW Standard Deviation 50.9 fL (36.4-46.3); Red Blood Count 3.78 M/uL (4.70-6.10); White Blood Count 5.26 K/ul (4.8-10.8)
[2025-02-02 06:45] LABS: Albumin Globulin Ratio 0.8 (0.9-2); BUN Creatinine Ratio 11.3 (10-20); Bilirubin,Total 4.3 mg/dl (0.2-1.0); Calcium 7.9 mg/dl (8.6-10.3); Creatinine Clr Calc Pharmacy 153.2 ml/min; Globulin 3.6 gm/dl (2.5-4.0); Magnesium 1.9 mg/dl (1.7-2.4); Potassium 3.8 mmol/L (3.5-5.1); Total Protein 6.6 gm/dl (6.0-8.3)
[2025-02-02 06:48] LABS: INR 1.6 (0.9-1.1); Prothrombin Time 16.9 Seconds (9.0-12.0)
[2025-02-02 07:26] LABS: Estimated Average Glucose 105 mg/dl; Hemoglobin A1C 5.3 % (4.5-5.6)
[2025-02-02] MEDS: FOLIC ACID 1 MG in SYRINGE 9.8 ML IV SCH (08:01)
[2025-02-02] MEDS: THIAMINE HCL 100 MG in SYRINGE 9 ML IV SCH (08:02)
--- NOTE | 2025-02-02 09:32 | Surgery Progress Note ---
<Statement entered by Mao Fernandes, - 02/02/25 15:06> Pt would like to see if he could have his gallbladder out during this admission. He has improved drastically and and may be ready for surgery but has thrombocytopenia. Will follow up platelets in the am and if platelets are improving tomorrow, we plan for surgery tomorrow. The details of the procedure have been explained to him including the risks, alternatives and benefits. He expressed understanding of this explanation and all of his questions were answered. Consent was obtained. Date of Service February 02, 2025 Assessment & Plan (1) Acute pancreatitis: Plan: patient is here w/ concern for gallstone pancreatitis labs show WBC 5.2. plt 65. Lipase downtrending to 254 (>6000). Tb 4.3, AST 77, ALT 30. INR 1.6 no choledocholithiasis on imaging. + pancreatitis, no acute cholecystitis. GI on board Abdominal pain improved, remains distended. not overly tender on exam. does have some back pain will continue to monitor, timing of lap kalyan to be determined pending ongoing improvement of pancreatitis Admission and Anticipated Discharge Date Admission Date: February 01, 2025 Subjective Patient reports feeling better than when he came in. denies nausea/vomiting. abdominal pain improved. does report some + back pain. + flatus. he feels like he is at his baseline abdomen in regards to bloat/distention Physical Exam Physical Exam: awake/alert Respiratory: normal respiratory effort Gastrointestinal (Abdomen): Inspection/Auscultation: + abdomen distended Percussion/Palpation: abdomen soft; abdomen nontender Results & Data Vital Signs (Past 12 Hours) Vital Signs Temp Pulse Resp BP Pulse Ox O2 Del Method 02/02/25 07:02 99.0 F 71 16 132/72 97 Room Air 02/02/25 04:19 98.8 F 76 14 131/72 95 Room Air 02/02/25 00:22 98.4 F 68 16 156/90 H 100 Room Air PG Care Time/CCT Total # of Minutes Spent Total Time Spent with Patient: Total time spent is greater than 50% in coordination of care (as documented) at patient's floor/unit and/or counseling patient: Coding Level of Care Code 42763 SUB INP/OBS CARE 09/25MIN Diagnoses Acute pancreatitis K85.90
--- NOTE | 2025-02-02 11:58 | Hospitalist Progress Note ---
Date of Service February 02, 2025 Assessment & Plan (1) Acute pancreatitis: (2) Elevated LFTs: (3) Alcohol use disorder: (4) Fatty liver: Plan This patient is a 49-year-old male with a history of almost daily alcohol use, fatty liver, allergies, and exercise-induced asthma who presents to the ER with right upper quadrant abdominal pain, N/V x 1 day- admitted for acute gallstone pancreatitis and duodenitis as well as likely alcoholic hepatitis and possible alcohol withdrawal. #Acute pancreatitis/cholelithiasis/duodenitis/fatty liver/splenomegaly-patient with history of almost daily alcohol use, gallstones without definite choledocholithiasis noted on CT. With fatty liver and resultant splenomegaly secondary to alcohol use. With elevated LFTs to include bilirubin, elevated INR, thrombocytopenia could be from alcoholic hepatitis. MRCP showed no ch oledocholithiasis, but confirmed pancreatitis. Lipase 6000 on admission and now trended downward. Pain resolved. LFTs remain elevated w/ TBili 4.5, AST ad ALT,Alk phos trending down--. TBili elevated despite likely passage of CBD stone but probably more elevated related to EtOH-induced hepatitis/fatty liver. HgbA1C normal at 5.3% - adv diet to clears, then NPO after midnight for lap kalyan on 02/03 - dc IVFs - Follow CBC, BMP, LFTs in AM - Consult general surgery appreciated-plan for lap cholecystectomy now that pancreatitis improved-follow plts-if < 70k, needs platelet transfusion preop - appreciate GI consult-no need for ERCP - Pain control with IV morphine, Zofran as needed for nausea - change IV to po Protonix for duodenitis #Alcohol use disorder with withdrawal/alcoholic hepatitis/Thrombocytopenia- patient admits to drinking 3-5 drinks at a time but not on a daily basis. But has not drank since 01/30 due to abdominal pain, nausea/vomiting. With elevated LFTs, elevated INR, low platelets, fatty liver and splenomegaly on imaging. EtOH level 0 on admission. Plts even lower now at 65-no bleeding -AWSS protocol with as needed Ativan -none needed since one dose in ED - continue thiamine 100 mg but change IV to po daily; change folic acid 1 mg from IV to po daily - Encouraged alcohol cessation and weight loss-consult Nursing Service Administrator - Follow CBC, BMP, LFTs, INR -recommend outpatient GI f/u for fatty liver and splenomegaly #Hyponatremia/hypokalemia/hypomagnesemia-secondary to poor p.o. intake, nausea/vomiting with resultant hypovolemia and acute pancreatitis. Now resolved after IVFs and replacement of mag,K+ - dc IVFs - Follow BMP, magnesium in the morning #Exercise-induced asthma/allergies-no acute issues - takes albuterol as needed at home-none needed here DVT prophylaxis-SCDs only due to need for surgery Disposition-continued stay on medical/surgical unit Admission and Anticipated Discharge Date Admission Date: February 01, 2025 Subjective Pt feeling much better today. Denies abd pain, no nausea. I discussed his care with Surgeon Physical Exam Constitutional: WD/WN, vitals as above Neck: trachea midline, no thyromegaly Respiratory: normal respiratory effort, lungs clear to auscultation Cardiovascular: RRR, no murmur, no edema Gastrointestinal (Abdomen): normal bowel sounds, soft, nontender, no hepatosplenomegaly Musculoskeletal: Extremities: extremities normal to inspection; no cyanosis and no clubbing Skin: no rashes, warm and dry Neurologic: moves all extremities and awake; no focal motor deficits Psychiatric: A+Ox3, euthymic affect Results & Data Results & Data Vital Signs (Past 12 Hours) Vital Signs Temp Pulse Resp BP Pulse Ox O2 Del Method 02/02/25 07:02 37.2 C 71 16 132/72 97 Room Air 02/02/25 04:19 37.1 C 76 14 131/72 95 Room Air 02/02/25 00:22 36.9 C 68 16 156/90 H 100 Room Air Laboratory Results CBC, CMP, lipase reviewed PG Care Time/CCT Total # of Minutes Spent Total Time Spent with Patient: Total time spent is greater than 50% in coordination of care (as documented) at patient's floor/unit and/or counseling patient: Coding Level of Care Code 10801 SUB INP/OBS CARE 2/35MIN Diagnoses Acute pancreatitis K85.90 Elevated LFTs R79.89 Alcohol use disorder F10.90 Fatty liver K76.0
--- NOTE | 2025-02-02 13:04 | Gastroenterology Progress Note ---
Date of Service February 02, 2025 Assessment & Plan (1) Acute pancreatitis: Plan: Gallstone Pancreatitis - Clinical history and imaging are consistent with gallstone pancreatitis. - Continue with pain management per primary team. - Continue to advance diet as tolerated. - Agree with General surgery for consideration of lap kalyan. - Please see Addendum by Dr. Urrutia for further recommendations on afternoon rounds. Liver Lesions, Splenomegaly and Gastric Varices - Recommend heart healthy diet with goal of maintaining a health weight. - Avoid use of alcohol or hepatotoxins. - Would recommend further f/u in outpatient with dedicated liver imaging and liver work up with outpatient GI or hepatology given imaging findings. - Please see Addendum by Dr. Urrutia for further recommendations on afternoon rounds. Admission and Anticipated Discharge Date Admission Date: February 01, 2025 Supervising Physician Co-Signing Physician Notes I saw and examined this patient with our nurse practitioner and agree with her assessment and plan. Clinically improving from gallstone pancreatitis. Less abdominal pain. Possible lap kalyan tomorrow as per surgery. Subjective 49yowm with h/o NAFLD, YEN, Achilles rupture, DL and alcohol use disorder is seen in [facility] ER for concerns of gallstone pancreatitis. Patient reports that he developed right upper quadrant pain that was intermittent several months ago. This would typically be right sided radiating to the back that is constant for about 30 minutes then resolve. However, over the last weekend it became more frequent. He reports that he was told he had a 'bad gallbladder'. With symptoms progressing he came to the ER. He reports a history of alcohol use in the distant past. No recent regular alcohol use. Labs 02/01/25 - Lipase 6435, Amylase 1517, T-Bili 4.5, AST 119, ALT 43, Alk Phos 113. CBC was reviewed. Hgb 14.0. Total WBC WNL. but mild elevation of Neutrophils at 6.96k/ul. Platelets 90 k/ul. CT abd/pelvis 02/01/25 IMPRESSION: 1. Hepatic steatosis. 2. Uncomplicated cholelithiasis. 3. Splenomegaly. 4. Pancreas appears normal in size, shape and shows subtle peripancreatic fat stranding- could be early pancreatitis. Serum amylase/lipase correlation suggested. 5. Mucosal inflammation with adjacent fat stranding is noted involving second and third part of duodenum- suggestive of duodenitis MRCP 02/01/25 IMPRESSION: 1. No biliary ductal dilatation. No common bile duct calculi identified. 2. Findings consistent with acute pancreatitis 3. Cholelithiasis. No evidence for acute cholecystitis. 4. Hepatic steatosis and hepatomegaly. 5. Mild splenomegaly and varices formation suggestive of portal hypertension. 6. Several T2 hyperintense hepatic lesions which measure up to 1.5 cm. Although not overtly suspicious, these are indeterminate and a nonemergent liver protocol MRI is recommended. Patient was admitted with suspect gallstone pancreatitis. Patient placed on NPO with pain management. Labs 02/02/25 - Lipase 254. T-Bili 4.3, AST 77, ALT 30, Alk Phos 83. Albumin 3.4 . Today her reports he's feeling better. He is about to proceed with eating his first clear liquid meal. No reports of fevers, SOB, cough, abdominal pain, N/V/D, melena, hematochezia at this time. Review of Systems Review of Systems: See HPI Physical Exam Physical Exam: Constitutional: Patient is pleasant, alert answering questions appropriately and appears to be in no distress. Eyes: conjunctivae pink, anicteric sclerae. Respiratory: Breathing is even, non-labored. Lungs eason are clear to auscultation without wheezes, rhonchi or rales. Cardiovascular: Regular Rate and Rhythm, no murmurs, rubs or gallops appreciated. Gastrointestinal (Abdomen): Normoactive bowel sounds x4, soft, non-distended, non-tender. Musculoskeletal: Lying comfortably in bed. No cyanosis or clubbing is appreciated. No peripheral edema. Results & Data Results & Data Vital Signs (Past 12 Hours) Vital Signs Temp Pulse Resp BP Pulse Ox O2 Del Method 02/02/25 07:02 99.0 F 71 16 132/72 97 Room Air 02/02/25 04:19 98.8 F 76 14 131/72 95 Room Air PG Care Time/CCT Total # of Minutes Spent Total Time Spent with Patient: Total time spent is greater than 50% in coordination of care (as documented) at patient's floor/unit and/or counseling patient: Coding Level of Care Code 42743 SUB INP/OBS CARE 2/35MIN Diagnoses Acute pancreatitis K85.90
[2025-02-02] MEDS: LOPERAMIDE HCL 2 MG CAP PO STA ×2 (14:59→22:03)
[2025-02-02] MEDS: PANTOprazole 40 MG TAB PO SCH (20:34)
[2025-02-03 07:09] LABS: Basophils # (auto) 0.05 K/uL (0.00-0.20); Basophils % (auto) 0.8 %; Eosinophils % (auto) 1.6 %; Hematocrit (blood only) 36.8 % (42.0-52.0); Hemoglobin 12.7 g/dl (14.0-18.0); Immature Granulocytes # (auto) 0.02 K/uL (0.01-0.20); Immature Granulocytes % (auto) 0.3 %; Lymphocytes # (auto) 1.61 K/uL (1.20-3.40); Lymphocytes % (auto) 25.1 %; Mean Corpuscular Hemoglobin 32.6 pg (25.0-34.0); Mean Corpuscular Hgb Conc 34.5 g/dL (32.0-36.0); Mean Corpuscular Volume 94.4 fL (80.0-100.0); Mean Platelet Volume 10.9 fL (9.4-12.4); Monocytes # (auto) 0.54 K/uL (0.11-0.59); Monocytes % (auto) 8.4 %; Neutrophils # (auto) 4.09 K/uL (1.40-6.50); Neutrophils % (auto) 63.8 %; Platelet Count 77 K/uL (130-400); RDW Coefficient of Variation 14.5 % (11.5-14.5); RDW Standard Deviation 49.2 fL (36.4-46.3); White Blood Count 6.41 K/ul (4.8-10.8)
[2025-02-03 07:37] LABS: Albumin Globulin Ratio 0.8 (0.9-2); Albumin Level 3.1 gm/dl (3.4-5.0); BUN Creatinine Ratio 8.7 (10-20); Bilirubin,Total 4.6 mg/dl (0.2-1.0); Creatinine Clr Calc Pharmacy 157.6 ml/min; Globulin 3.8 gm/dl (2.5-4.0); Magnesium 1.8 mg/dl (1.7-2.4); Potassium 3.4 mmol/L (3.5-5.1); Total Protein 6.9 gm/dl (6.0-8.3)
[2025-02-03 07:42] LABS: INR 1.5 (0.9-1.1)
[2025-02-03] MEDS ORDERED: LIDOCAINE 2% 2 ML VIAL/AMP(20MG/ML) INFIL ONE (07:49)
[2025-02-03] MEDS ORDERED: ROCURONIUM BROMIDE 10 MG/ML 5 ML VIAL IV ONE (07:49)
[2025-02-03] MEDS ORDERED: DEXAMETHASONE SOD INJ 4 MG/ML VIAL ONE (07:49)
[2025-02-03] MEDS ORDERED: ONDANSETRON INJ 2 MG/ML 2 ML VIAL ONE (07:49)
[2025-02-03] MEDS ORDERED: KETOROLAC 30 MG/ML VIAL ONE (07:49)
[2025-02-03] MEDS ORDERED: PROPOFOL IV EMULSION 10 MG/ML 20 ML VIAL IV ONE (07:49)
--- NOTE | 2025-02-03 08:16 | Surgery Progress Note ---
Date of Service February 03, 2025 Assessment & Plan (1) Acute pancreatitis: Plan: patient here w/ presumed gallstone pancreatitis WBC 6, hbg 12. platelets 77. Tb is up some 4.6 (4.3) Lipase pending. MRCP was negative for choledocholithiasis planning on OR today for lap kalyan with dr. pemberton GI on board Admission and Anticipated Discharge Date Admission Date: February 01, 2025 Supervising Physician Co-Signing Physician Notes I have seen and examined this patient this am. We will proceed with laparoscopic cholecystectomy with IOC. Further plan pending results of this procedure. Subjective patient feeling okay. some queasiness overnight but a little better this AM. no nausea/vomiting. Reporting some "urgency" overnight and required imodium for loose stools. he is passing gas Physical Exam Physical Exam: awake/alert, no distress Gastrointestinal (Abdomen): Inspection/Auscultation: + abdomen distended Percussion/Palpation: abdomen nontender Results & Data Vital Signs (Past 12 Hours) Vital Signs Temp Pulse Resp BP Pulse Ox O2 Del Method 02/03/25 07:01 98.2 F 75 16 143/75 H 94 Room Air 02/02/25 20:27 98.4 F 77 16 139/81 95 Room Air PG Care Time/CCT Total # of Minutes Spent Total Time Spent with Patient: Total time spent is greater than 50% in coordination of care (as documented) at patient's floor/unit and/or counseling patient: Coding Level of Care Code 98837 SUB INP/OBS CARE 09/25MIN Diagnoses Acute pancreatitis K85.90
[2025-02-03] MEDS ORDERED: MIDAZOLAM HCL 1 MG/ML 2ML VIAL ONE (08:26)
[2025-02-03] MEDS ORDERED: fentaNYL citrate PF 100 MCG/2 ML VIAL ONE (08:26)
[2025-02-03] MEDS ORDERED: SUGAMMADEX SODIUM 200 MG/2 ML VIAL IV ONE (08:37)
--- NOTE | 2025-02-03 08:44 | Anesthesiology Consultation ---
Date of Service February 03, 2025 Assessment & Plan Chart Review Chart Review: Acceptable Risk for Surgery Consults Requested none ASA ASA4 Proposed Anesthesia Anesthesia Type: General Risk / Benefits Reviewed With: PT / POA / Parent / Guardian, Accepts Plan and Informed Consent Obtained History Surgery Operation Date: 02/03/25 08:55 Proposed Procedures p Robotic Laparoscopic Cholecystectomy - Mao Fernandes DO Height/Weight Height: 5 ft 10 in Weight: 101 kg Allergies Allergy/AdvReac Type Severity Reaction Status Date / Time cucumber AdvReac Severe Body will Verified 02/03/25 08:34 not digest Medications Home Medications Medication Instructions Recorded Confirmed Last Taken No Known Home Medications 02/01/25 02/01/25 Unknown Active Medications Generic Name Dose Route Start Last Admin Trade Name Freq PRN Reason Stop Dose Admin Pantoprazole Sodium 40 mg 02/02/25 21:00 02/02/25 20:34 Pantoprazole 40 Mg Tab PO 03/04/25 20:59 40 mg BID BOBBY Administration NPO Date Last Intake of Fluids: 02/02/25 Time Last Intake of Fluids: 23:59 Date Last Intake of Solids: 02/02/25 Time Last Intake of Solids: 23:59 Past Medical History Medical History History of anesthesia reaction states he could hear/remember during follicular unit surgery Hair loss reason for finasteride Temporomandibular joint disorder intermittent swelling/teeth grinding (was using bite block--has not used in awhile) Exercise-induced asthma inhaler prn History of COVID-19 diagnosed 2020--mild symptoms, no symptoms now Exercise / Class Metabolic Activity III < 4 Walking/Shop/Light housework Past Family History Family History Grandmother (Maternal) Breast cancer Stroke Grandmother (Paternal) Diabetes Dementia Colorectal cancer Father Diabetes Myocardial infarction, Onset Age: 45 Other No family history of adverse response to anesthesia Denies family history of Ovarian cancer Prostate cancer Lung cancer Past Surgical History Surgical History History of cosmetic surgery back of head/top of head--follicular unit transplant History of colonoscopy History of wisdom tooth extraction Past Anesthesia History No Hx of Anesthesia Complications and No Family Hx of Anesthesia Complications History of PONV No Hx of PONV and No Hx of Motion Sickness Social History Smoking Status: Never smoker Do You Dip or Chew Tobacco: No Hx Alcohol Use: Yes Alcohol type: beer and wine alcohol intake frequency: 3 or more drinks per day Hx Substance Use: No substance use type: does not use Physical Exam Vital Signs Last Vital Signs Temp 36.8 C 02/03/25 07:01 Pulse 75 02/03/25 07:01 Resp 16 02/03/25 07:01 BP 143/75 H 02/03/25 07:01 Pulse Ox 94 02/03/25 07:01 O2 Del Method Room Air 02/03/25 07:01 Constitutional + obese ENMT Mouth: + chipped teeth Thyromental Distance: > or= 3.5 Finger Breadths Mallampati Class: II Neck normal visual inspection Jaundiced Respiratory normal respiratory effort; no respiratory distress Auscultation: lungs clear to auscultation bilaterally Cardiovascular Rate/Rhythm: regular rate and regular rhythm Psychiatric Orientation: alert and oriented x 3 Testing Laboratory Results 02/03/25 06:29 02/03/25 06:29 PT 16.0 Seconds (9.0-12.0) H 02/03/25 06:29 INR 1.5 (0.9-1.1) H 02/03/25 06:29 APTT 34 Seconds (21-31) H 02/01/25 05:35 Hemoglobin A1c 5.3 % (4.5-5.6) 02/02/25 05:46 Urine Color Hemphill 02/01/25 05:35 Urine Appearance Clear (Clear) 02/01/25 05:35 Urine pH 6.5 (4.5-7.5) 02/01/25 05:35 Ur Specific Parnell 1.024 (1.000-1.030) 02/01/25 05:35 Urine Protein 1+ (Negative) H 02/01/25 05:35 Urine Glucose (UA) Negative (Negative) 02/01/25 05:35 Urine Ketones Trace (Negative) H 02/01/25 05:35 Urine Nitrite Positive (Negative) A 02/01/25 05:35 Ur Leukocyte Esterase 1+ (Negative) H 02/01/25 05:35 Urine WBC (Auto) 0-5 /hpf (0-5) 02/01/25 05:35 Urine RBC (Auto) 0-2 /hpf (0-2) 02/01/25 05:35 U Hyaline Cast (Auto) 0-2 /lpf (0-2) 02/01/25 05:35 U Epithel Cells (Auto) 0-2 /hpf (0-2) 02/01/25 05:35 Urine Bacteria (Auto) None Seen (None Seen) 02/01/25 05:35 02/01/25 05:35 Urine Culture - Preliminary Urine,Clean Catch No growth - Less than 1,000 colonies/mL, Final report to follow.
[2025-02-03] MEDS ORDERED: HYDROmorphone INJ 2 MG/ML SYR/VIAL IV PRN (08:45)
[2025-02-03] MEDS ORDERED: ePHEDrine sulfate 50 MG/ML AMP IV PRN (08:45)
[2025-02-03] MEDS ORDERED: ATROPINE SULFATE 0.1 MG/ML 10ML SYR IV PRN (08:45)
[2025-02-03] MEDS ORDERED: HYDROmorphone INJ 1 MG/ML SYRINGE IV PRN (08:45)
[2025-02-03] MEDS ORDERED: ONDANSETRON INJ 2 MG/ML 2 ML VIAL IV PRN (08:45)
[2025-02-03 10:07] VITALS: BP 151/80; PULSE 74; RESP 17; TEMP 98.4; O2SAT 94
[2025-02-03] MEDS: cefOXitin 2,000 MG in DEXTROSE 5 % MINI-B 50 ML IV SCH (10:09)
[2025-02-03] MEDS: BUPIVACAINE 0.5 % 5 MG/1 ML MPF 30ML VIAL ONE (10:10)
[2025-02-03] MEDS: LACTATED RINGER'S 1,000 ML IV SCH (10:10)
[2025-02-03] MEDS: THIAMINE HCL 100 MG TAB PO SCH (10:18)
[2025-02-03] MEDS: FOLIC ACID 1 MG TAB PO SCH (10:18)
[2025-02-03] MEDS: POTASSIUM CHLORIDE CRTAB 20 MEQ TABCR PO ONE (12:03)
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
== END 2025-02-03 14:26 | disposition home or self-care (01) | DRG 439 ==
LOC: SUATTDRO → ED 05:01 → EDINP 09:32 → 3E 15:55